=== PATIENT | male | born 1945 | race Caucasian/White ===

== ENCOUNTER 2018-05-24 18:02 | Inpatient (IN) | payer MEDICARE, OTHER, MEDICAID ==
[2018-05-24] MEDS: ALBUTEROL 0.5% (NEB) 2.5 MG/0.5 ML AMP INH (18:09)
[2018-05-24] MEDS: IPRATROPIUM (NEB) 0.5 MG/2.5 ML AMP INH (18:10)
[2018-05-24] MEDS: METHYLPREDNISOLONE 125 MG INJ IV (18:13)
[2018-05-24] MEDS: SOD CHLORIDE 0.9% 1,000 ML IV (18:14)
[2018-05-24 18:31] LABS: ADD MAN DIFF? NO; BASOPHIL # 0.1 10^3/ul (0.0-0.1); BASOPHILS % 0.5 % (0.0-2.0); EOSINOPHILS # 0.4 10^3/ul (0.0-0.5); EOSINOPHILS % 3.6 % (0.0-7.0); HEMATOCRIT 45.7 % (42.0-52.0); HEMOGLOBIN 15.1 g/dl (14.0-18.0); LYMPHOCYTES # 3.4 10^3/ul (0.8-2.9); LYMPHOCYTES % 32.9 % (15.0-51.0); MEAN CORPUSCULAR HEMOGLOBIN 31.3 pg (29.0-33.0); MEAN CORPUSCULAR VOLUME 94.6 fl (82.0-101.0); MEAN PLATELET VOLUME 9.3 fl (7.4-10.4); MONOCYTE # 1.1 10^3/ul (0.3-0.9); MONOCYTES % 10.2 % (0.0-11.0); NEUTROPHIL # 5.4 10^3/ul (1.6-7.5); NEUTROPHILS % 52.1 % (39.0-77.0); PLATELET COUNT 312 10^3/UL (140-415); RED BLOOD COUNT 4.83 10^6/ul (4.70-6.10); RED CELL DISTRIBUTION WIDTH 13.7 % (11.5-14.5)
[2018-05-24 18:31] LABS: WHITE BLOOD COUNT 10.4 10^3/ul (4.8-10.8)
[2018-05-24 18:50] LABS: ALANINE AMINOTRANSFERASE 28 IU/L (13-69); ALBUMIN 3.5 g/dl (3.3-4.9); ALBUMIN/GLOBULIN RATIO 1.09; ALKALINE PHOSPHATASE 58 IU/L (42-121); ANION GAP 11 (8-16); ASPARTATE AMINO TRANSFERASE 20 IU/L (15-46); BLOOD UREA NITROGEN 28 mg/dl (7-20); CALCIUM 9.2 mg/dl (8.4-10.2); CARBON DIOXIDE 34 mmol/L (21-31); CHLORIDE 106 mmol/L (97-110); CREATININE 0.88 mg/dl (0.61-1.24); GLUCOSE 96 mg/dl (70-220); LIPASE 36 U/L (23-300); POTASSIUM 4.4 mmol/L (3.5-5.1); SODIUM 147 mmol/L (135-144); TOTAL PROTEIN 6.7 g/dl (6.1-8.1)
[2018-05-24 19:01] LABS: TROPONIN-I < 0.012 ng/ml (0.000-0.120)
[2018-05-24] MEDS ORDERED: LORAZEPAM 2 MG INJ (19:03)
[2018-05-24] MEDS: LORAZEPAM 2 MG INJ IV (19:15)
[2018-05-24] MEDS ORDERED: hydrALAzine 20 MG INJ IV (19:30)
[2018-05-24] MEDS ORDERED: NITROGLYCERIN (SL) 0.4 MG TAB SL (19:30)
[2018-05-24] MEDS ORDERED: NACL 0.9% 3 ML SYG IV (19:30)
[2018-05-24] MEDS ORDERED: NA PHOSPHATE/BIPHOS 133 ML ENEMA PR (19:30)
[2018-05-24] MEDS ORDERED: HYDROCODONE/APAP (5/325) TAB PO (19:30)
[2018-05-24 19:56] LABS: INR 0.91; PROTIME 12.3 Sec (11.9-14.9)
[2018-05-24 19:57] LABS: PARTIAL THROMBOPLASTIN TIME 26.4 Sec (25.0-35.0)
[2018-05-24 19:58] LABS: CREATINE KINASE 27 IU/L (23-200)
[2018-05-24 20:11] LABS: FREE T4 (FREE THYROXINE) 1.47 ng/dl (0.78-2.44)
[2018-05-24] MEDS: ALBUTEROL/IPRATROPIUM (NEB) 3 ML AMP HHN (20:49)
[2018-05-25] MEDS: METHYLPREDNISOLONE 125 MG INJ IV ×4 (00:52→20:51)
[2018-05-25] MEDS: CHLORDIAZEPOXIDE 25 MG CAP PO ×4 (00:52→20:58)
[2018-05-25] MEDS: HEPARIN 5,000 UNIT/0.5 ML VIAL SC (01:08)
[2018-05-25] MEDS: ALBUTEROL/IPRATROPIUM (NEB) 3 ML AMP HHN ×6 (01:10→20:58)
[2018-05-25] MEDS: ACCU-CHEK XX (01:44)
[2018-05-25] MEDS ORDERED: GLUCAGON 1 MG INJ IM (02:00)
[2018-05-25] MEDS ORDERED: GLUCOSE GEL 15 GRAM TUBE BUCCAL (02:00)
[2018-05-25] MEDS ORDERED: DEXTROSE 50% 50 ML SYRINGE IV ×2 (02:00)
[2018-05-25] MEDS ORDERED: GLUCOSE GEL 15 GRAM TUBE PO ×2 (02:00)
[2018-05-25] MEDS: PANTOPRAZOLE 40 MG INJ IV (05:50)
[2018-05-25 06:17] LABS: ADD MAN DIFF? NO
[2018-05-25 06:32] LABS: WHITE BLOOD COUNT 7.8 10^3/ul (4.8-10.8)
[2018-05-25 06:32] LABS: BASOPHILS % 0.1 % (0.0-2.0); HEMATOCRIT 41.4 % (42.0-52.0); HEMOGLOBIN 13.5 g/dl (14.0-18.0); LYMPHOCYTES # 0.7 10^3/ul (0.8-2.9); LYMPHOCYTES % 9.5 % (15.0-51.0); MEAN CORPUSCULAR HGB CONC 32.6 g/dl (32.0-37.0); MEAN CORPUSCULAR VOLUME 95.2 fl (82.0-101.0); MEAN PLATELET VOLUME 10.9 fl (7.4-10.4); MONOCYTE # 0.1 10^3/ul (0.3-0.9); MONOCYTES % 1.3 % (0.0-11.0); NEUTROPHIL # 6.9 10^3/ul (1.6-7.5); NEUTROPHILS % 88.7 % (39.0-77.0); PLATELET COUNT 266 10^3/UL (140-415); POSITIVE DIFF @See below; RED BLOOD COUNT 4.35 10^6/ul (4.70-6.10); RED CELL DISTRIBUTION WIDTH 13.8 % (11.5-14.5)
[2018-05-25 07:09] LABS: CHOLESTEROL 113 mg/dl (100-200)
[2018-05-25 07:09] LABS: CHOL/HDL RATIO 2.3 RATIO; HDL CHOLESTEROL 48 mg/dl (31-75); LDL CHOLESTEROL,CALCULATED 56 mg/dl; TRIGLYCERIDES 43 mg/dl (0-149)
[2018-05-25 07:17] LABS: ANION GAP 14 (8-16); BLOOD UREA NITROGEN 28 mg/dl (7-20); CALCIUM 9.3 mg/dl (8.4-10.2); CARBON DIOXIDE 27 mmol/L (21-31); CHLORIDE 107 mmol/L (97-110); CREATININE 0.66 mg/dl (0.61-1.24); GLUCOSE 153 mg/dl (70-220); MAGNESIUM 2.1 mg/dl (1.7-2.5); PHOSPHORUS 3.5 mg/dl (2.5-4.9); POTASSIUM 4.4 mmol/L (3.5-5.1); SODIUM 144 mmol/L (135-144)
[2018-05-25 07:19] LABS: CREATINE KINASE < 20 IU/L (23-200)
[2018-05-25 07:22] LABS: CK-MB 0.33 ng/ml (0.0-2.4); TROPONIN-I < 0.012 ng/ml (0.000-0.120)
[2018-05-25 07:30] LABS: HEMOGLOBIN A1C 5.6 % (0-5.9)
[2018-05-25 07:38] LABS: THYROID STIMULATING HORMONE 0.832 MIU/L (0.465-4.680)
[2018-05-25] MEDS: LORAZEPAM 2 MG INJ IV ×5 (08:08→23:30)
[2018-05-25] MEDS: INSULIN ASPART [NOVOLOG] 3 ML PEN SC ×4 (08:09→20:57)
[2018-05-25] MEDS: MULTIVITAMINS 10 ML, THIAMINE 100 MG, FOLIC ACID 1 MG in SOD CHLORIDE 0.9% 1,000 ML IVPB (08:19)
[2018-05-25] MEDS ORDERED: MULTIVITAMINS 10 ML, THIAMINE 100 MG, FOLIC ACID 1 MG in SOD CHLORIDE 0.9% 1,000 ML IVPB (09:00)
[2018-05-25] MEDS: LEVOFLOXACIN 750MG/D5W (PMX) 150 ML IVPB (09:25)
[2018-05-25] MEDS: LEVOTHYROXINE 75 MCG TAB PO (10:48)
[2018-05-25] MEDS: FLUOXETINE 20 MG CAP PO (10:48)
[2018-05-25] MEDS: ARIPIPRAZOLE 5 MG TAB PO (10:48)
[2018-05-25] MEDS: QUETIAPINE 100 MG TAB PO (10:48)
[2018-05-26] MEDS: LORAZEPAM 2 MG INJ IV ×5 (00:37→21:14)
[2018-05-26] MEDS: ALBUTEROL/IPRATROPIUM (NEB) 3 ML AMP HHN ×6 (01:00→20:26)
[2018-05-26] MEDS: ACCU-CHEK XX (02:00)
[2018-05-26 05:16] LABS: ADD MAN DIFF? NO
[2018-05-26 05:29] LABS: BASOPHILS % 0.2 % (0.0-2.0); LYMPHOCYTES # 1.2 10^3/ul (0.8-2.9); LYMPHOCYTES % 6.1 % (15.0-51.0); MEAN CORPUSCULAR HEMOGLOBIN 31.4 pg (29.0-33.0); MEAN CORPUSCULAR HGB CONC 33.3 g/dl (32.0-37.0); MEAN CORPUSCULAR VOLUME 94.1 fl (82.0-101.0); MEAN PLATELET VOLUME 10.6 fl (7.4-10.4); MONOCYTE # 0.9 10^3/ul (0.3-0.9); MONOCYTES % 4.9 % (0.0-11.0); NEUTROPHIL # 16.8 10^3/ul (1.6-7.5); NEUTROPHILS % 88.1 % (39.0-77.0); PLATELET COUNT 295 10^3/UL (140-415); RED BLOOD COUNT 4.78 10^6/ul (4.70-6.10); RED CELL DISTRIBUTION WIDTH 13.6 % (11.5-14.5)
[2018-05-26 05:29] LABS: WHITE BLOOD COUNT 19.1 10^3/ul (4.8-10.8)
[2018-05-26] MEDS: PANTOPRAZOLE 40 MG INJ IV (05:37)
[2018-05-26] MEDS: LEVOFLOXACIN 750MG/D5W (PMX) 150 ML IVPB (05:38)
[2018-05-26] MEDS: METHYLPREDNISOLONE 125 MG INJ IV ×2 (05:38→13:35)
[2018-05-26] MEDS: LEVOTHYROXINE 75 MCG TAB PO (05:46)
[2018-05-26 07:29] LABS: ANION GAP 11 (8-16); BLOOD UREA NITROGEN 21 mg/dl (7-20); CARBON DIOXIDE 28 mmol/L (21-31); CHLORIDE 107 mmol/L (97-110); CREATININE 0.59 mg/dl (0.61-1.24); GLUCOSE 137 mg/dl (70-220); POTASSIUM 4.1 mmol/L (3.5-5.1); SODIUM 142 mmol/L (135-144)
[2018-05-26 07:30] LABS: MAGNESIUM 2.2 mg/dl (1.7-2.5)
[2018-05-26 07:30] LABS: PHOSPHORUS 3.1 mg/dl (2.5-4.9)
[2018-05-26] MEDS: INSULIN ASPART [NOVOLOG] 3 ML PEN SC ×4 (07:35→20:56)
[2018-05-26] MEDS: CHLORDIAZEPOXIDE 25 MG CAP PO ×3 (08:33→21:00)
[2018-05-26] MEDS: FLUOXETINE 20 MG CAP PO (08:33)
[2018-05-26] MEDS: ARIPIPRAZOLE 5 MG TAB PO (08:33)
[2018-05-26] MEDS: QUETIAPINE 100 MG TAB PO (08:34)
[2018-05-26] MEDS: MULTIVITAMINS 10 ML, THIAMINE 100 MG, FOLIC ACID 1 MG in SOD CHLORIDE 0.9% 1,000 ML IVPB (08:56)
[2018-05-26] MEDS: ONDANSETRON 4 MG INJ IV (13:34)
[2018-05-26] MEDS: THIAMINE 500 MG in SOD CHLORIDE 0.9% 250 ML IV (17:24)
[2018-05-26] MEDS ORDERED: THIAMINE 200 MG INJ IVPB (21:00)
[2018-05-27] MEDS: METHYLPREDNISOLONE 125 MG INJ IV ×4 (00:01→21:19)
[2018-05-27 00:36] LABS: AADO2 Arterial 315.5 mmHg (7.0-24.0); Allen Test ACCEPTAB; Arterial Base Excess 0.7 mmol/L (-3.0-3); Arterial Blood Gas Oxygen Sat 90.8 mmHG (95.0-100.0); Arterial COHb 0.6 % (0.0-3.0); Arterial HCO3 26.1 mmol/L (22.0-26.0); Arterial MetHb 0.3 % (0.0-1.5); Arterial Total Hemglobin 14.5 g/dl (12.0-18.0); MODE MASK - SIMPLE; Site Right Radial
[2018-05-27] MEDS: ALBUTEROL/IPRATROPIUM (NEB) 3 ML AMP HHN ×6 (01:10→21:00)
[2018-05-27] MEDS: ACCU-CHEK XX (02:00)
[2018-05-27] MEDS: LORAZEPAM 2 MG INJ IV ×3 (04:49→20:49)
[2018-05-27] MEDS: PANTOPRAZOLE 40 MG INJ IV (05:43)
[2018-05-27] MEDS: LEVOFLOXACIN 750MG/D5W (PMX) 150 ML IVPB (05:43)
[2018-05-27] MEDS: LEVOTHYROXINE 75 MCG TAB PO (05:45)
[2018-05-27] MEDS: INSULIN ASPART [NOVOLOG] 3 ML PEN SC ×4 (07:55→20:50)
[2018-05-27] MEDS: FLUOXETINE 20 MG CAP PO (08:40)
[2018-05-27] MEDS: ARIPIPRAZOLE 5 MG TAB PO (08:40)
[2018-05-27] MEDS: CHLORDIAZEPOXIDE 25 MG CAP PO ×3 (08:40→20:50)
[2018-05-27] MEDS: QUETIAPINE 100 MG TAB PO (08:41)
[2018-05-27] MEDS: MULTIVITAMINS 10 ML, THIAMINE 100 MG, FOLIC ACID 1 MG in SOD CHLORIDE 0.9% 1,000 ML IVPB (08:50)
[2018-05-27] MEDS: THIAMINE 500 MG in SOD CHLORIDE 0.9% 250 ML IV ×3 (10:19→20:49)
[2018-05-27] MEDS: morphine 2 MG INJ IV (16:42)
[2018-05-27 17:37] LABS: ADD MAN DIFF? NO
[2018-05-27 17:38] LABS: ABNORMAL IP MESSAGE 1; BASOPHILS % 0.1 % (0.0-2.0); EOSINOPHILS % 0.1 % (0.0-7.0); HEMATOCRIT 44.4 % (42.0-52.0); HEMOGLOBIN 14.6 g/dl (14.0-18.0); LYMPHOCYTES # 0.5 10^3/ul (0.8-2.9); LYMPHOCYTES % 3.7 % (15.0-51.0); MEAN CORPUSCULAR HEMOGLOBIN 31.4 pg (29.0-33.0); MEAN CORPUSCULAR HGB CONC 32.9 g/dl (32.0-37.0); MEAN CORPUSCULAR VOLUME 95.5 fl (82.0-101.0); MEAN PLATELET VOLUME 9.8 fl (7.4-10.4); MONOCYTE # 0.6 10^3/ul (0.3-0.9); MONOCYTES % 4.3 % (0.0-11.0); NEUTROPHIL # 13.2 10^3/ul (1.6-7.5); NEUTROPHILS % 90.6 % (39.0-77.0); PLATELET COUNT 304 10^3/UL (140-415); POSITIVE DIFF @See below; RED BLOOD COUNT 4.65 10^6/ul (4.70-6.10); RED CELL DISTRIBUTION WIDTH 13.7 % (11.5-14.5)
[2018-05-27 17:38] LABS: WHITE BLOOD COUNT 14.6 10^3/ul (4.8-10.8)
[2018-05-27 17:59] LABS: ANION GAP 6 (8-16); BLOOD UREA NITROGEN 23 mg/dl (7-20); CALCIUM 8.9 mg/dl (8.4-10.2); CARBON DIOXIDE 30 mmol/L (21-31); CHLORIDE 104 mmol/L (97-110); CREATININE 0.63 mg/dl (0.61-1.24); GLUCOSE 122 mg/dl (70-220); POTASSIUM 3.9 mmol/L (3.5-5.1); SODIUM 136 mmol/L (135-144)
[2018-05-28] MEDS: ALBUTEROL/IPRATROPIUM (NEB) 3 ML AMP HHN ×6 (01:22→20:22)
[2018-05-28] MEDS: ACCU-CHEK XX (02:00)
[2018-05-28] MEDS: LORAZEPAM 2 MG INJ IV ×2 (03:21→11:35)
[2018-05-28] MEDS: METHYLPREDNISOLONE 125 MG INJ IV ×3 (05:14→21:18)
[2018-05-28] MEDS: LEVOFLOXACIN 750MG/D5W (PMX) 150 ML IVPB (05:14)
[2018-05-28] MEDS: PANTOPRAZOLE 40 MG INJ IV (05:14)
[2018-05-28] MEDS: LEVOTHYROXINE 75 MCG TAB PO (05:18)
[2018-05-28 06:48] LABS: ADD MAN DIFF? NO
[2018-05-28 06:59] LABS: BASOPHILS % 0.1 % (0.0-2.0); HEMATOCRIT 42.8 % (42.0-52.0); LYMPHOCYTES % 8.3 % (15.0-51.0); MEAN CORPUSCULAR HEMOGLOBIN 30.9 pg (29.0-33.0); MEAN CORPUSCULAR HGB CONC 32.7 g/dl (32.0-37.0); MEAN CORPUSCULAR VOLUME 94.5 fl (82.0-101.0); MEAN PLATELET VOLUME 9.6 fl (7.4-10.4); MONOCYTE # 1.1 10^3/ul (0.3-0.9); MONOCYTES % 8.9 % (0.0-11.0); NEUTROPHIL # 10.1 10^3/ul (1.6-7.5); PLATELET COUNT 268 10^3/UL (140-415); RED BLOOD COUNT 4.53 10^6/ul (4.70-6.10); RED CELL DISTRIBUTION WIDTH 13.7 % (11.5-14.5)
[2018-05-28 06:59] LABS: WHITE BLOOD COUNT 12.3 10^3/ul (4.8-10.8)
[2018-05-28 07:45] LABS: ANION GAP 8 (8-16); BLOOD UREA NITROGEN 20 mg/dl (7-20); CALCIUM 9.2 mg/dl (8.4-10.2); CARBON DIOXIDE 31 mmol/L (21-31); CHLORIDE 100 mmol/L (97-110); CREATININE 0.64 mg/dl (0.61-1.24); GLUCOSE 122 mg/dl (70-220); POTASSIUM 4.2 mmol/L (3.5-5.1); SODIUM 135 mmol/L (135-144)
[2018-05-28] MEDS: INSULIN ASPART [NOVOLOG] 3 ML PEN SC ×4 (07:55→21:00)
[2018-05-28] MEDS: ARIPIPRAZOLE 5 MG TAB PO (08:41)
[2018-05-28] MEDS: QUETIAPINE 100 MG TAB PO (08:41)
[2018-05-28] MEDS: THIAMINE 500 MG in SOD CHLORIDE 0.9% 250 ML IV ×3 (08:42→21:18)
[2018-05-28] MEDS: FLUOXETINE 20 MG CAP PO (08:50)
[2018-05-28] MEDS: MULTIVITAMINS 10 ML, THIAMINE 100 MG, FOLIC ACID 1 MG in SOD CHLORIDE 0.9% 1,000 ML IVPB (08:50)
[2018-05-28] MEDS: CHLORDIAZEPOXIDE 25 MG CAP PO ×3 (08:50→21:00)
[2018-05-29] MEDS: ALBUTEROL/IPRATROPIUM (NEB) 3 ML AMP HHN ×6 (00:50→20:43)
[2018-05-29] MEDS: ACCU-CHEK XX ×2 (02:00→21:11)
[2018-05-29] MEDS: LEVOFLOXACIN 750MG/D5W (PMX) 150 ML IVPB (05:37)
[2018-05-29] MEDS: METHYLPREDNISOLONE 125 MG INJ IV (05:37)
[2018-05-29] MEDS: PANTOPRAZOLE 40 MG INJ IV (05:37)
[2018-05-29] MEDS: LEVOTHYROXINE 75 MCG TAB PO (06:00)
[2018-05-29 06:34] LABS: ADD MAN DIFF? NO
[2018-05-29 06:42] LABS: WHITE BLOOD COUNT 9.4 10^3/ul (4.8-10.8)
[2018-05-29 06:42] LABS: BASOPHILS % 0.1 % (0.0-2.0); HEMOGLOBIN 14.3 g/dl (14.0-18.0); LYMPHOCYTES # 0.8 10^3/ul (0.8-2.9); LYMPHOCYTES % 8.5 % (15.0-51.0); MEAN CORPUSCULAR HEMOGLOBIN 31.2 pg (29.0-33.0); MEAN CORPUSCULAR HGB CONC 33.3 g/dl (32.0-37.0); MEAN CORPUSCULAR VOLUME 93.7 fl (82.0-101.0); MEAN PLATELET VOLUME 9.9 fl (7.4-10.4); MONOCYTE # 0.7 10^3/ul (0.3-0.9); MONOCYTES % 7.6 % (0.0-11.0); NEUTROPHIL # 7.7 10^3/ul (1.6-7.5); NEUTROPHILS % 81.7 % (39.0-77.0); PLATELET COUNT 258 10^3/UL (140-415); RED BLOOD COUNT 4.59 10^6/ul (4.70-6.10); RED CELL DISTRIBUTION WIDTH 13.6 % (11.5-14.5)
[2018-05-29 07:11] LABS: ANION GAP 9 (8-16); BLOOD UREA NITROGEN 23 mg/dl (7-20); CALCIUM 8.7 mg/dl (8.4-10.2); CARBON DIOXIDE 30 mmol/L (21-31); CHLORIDE 103 mmol/L (97-110); CREATININE 0.63 mg/dl (0.61-1.24); GLUCOSE 122 mg/dl (70-220); POTASSIUM 4.1 mmol/L (3.5-5.1); SODIUM 138 mmol/L (135-144)
[2018-05-29] MEDS: INSULIN ASPART [NOVOLOG] 3 ML PEN SC ×4 (07:55→21:00)
[2018-05-29] MEDS: ARIPIPRAZOLE 5 MG TAB PO (08:16)
[2018-05-29] MEDS: THIAMINE 500 MG in SOD CHLORIDE 0.9% 250 ML IV ×2 (08:16→12:46)
[2018-05-29] MEDS: QUETIAPINE 100 MG TAB PO (08:16)
[2018-05-29] MEDS: FLUOXETINE 20 MG CAP PO (08:16)
[2018-05-29] MEDS: CHLORDIAZEPOXIDE 25 MG CAP PO (08:18)
[2018-05-29] MEDS: LORAZEPAM 2 MG INJ IV ×3 (12:42→23:57)
[2018-05-29] MEDS ORDERED: PENDING SANTYL ORDER FOR WOUND CARE XX (14:30)
[2018-05-29] MEDS: METHYLPREDNISOLONE 40 MG INJ IV (21:01)
[2018-05-30] MEDS: ALBUTEROL/IPRATROPIUM (NEB) 3 ML AMP HHN ×6 (01:00→21:26)
[2018-05-30] MEDS: LEVOFLOXACIN 750MG/D5W (PMX) 150 ML IVPB (05:22)
[2018-05-30] MEDS: LEVOTHYROXINE 75 MCG TAB PO (05:22)
[2018-05-30] MEDS: morphine LIQ (10 MG/5 ML) CUP PO (05:42)
[2018-05-30] MEDS: PANTOPRAZOLE 40 MG INJ IV (06:06)
[2018-05-30 06:10] LABS: ADD MAN DIFF? NO
[2018-05-30 06:22] LABS: BASOPHILS % 0.2 % (0.0-2.0); EOSINOPHILS # 0.2 10^3/ul (0.0-0.5); EOSINOPHILS % 1.6 % (0.0-7.0); HEMATOCRIT 44.1 % (42.0-52.0); HEMOGLOBIN 14.5 g/dl (14.0-18.0); LYMPHOCYTES # 3.2 10^3/ul (0.8-2.9); LYMPHOCYTES % 25.3 % (15.0-51.0); MEAN CORPUSCULAR HEMOGLOBIN 31.5 pg (29.0-33.0); MEAN CORPUSCULAR HGB CONC 32.9 g/dl (32.0-37.0); MEAN CORPUSCULAR VOLUME 95.7 fl (82.0-101.0); MEAN PLATELET VOLUME 9.7 fl (7.4-10.4); MONOCYTE # 1.3 10^3/ul (0.3-0.9); MONOCYTES % 10.7 % (0.0-11.0); NEUTROPHIL # 7.7 10^3/ul (1.6-7.5); NEUTROPHILS % 61.6 % (39.0-77.0); PLATELET COUNT 238 10^3/UL (140-415); RED BLOOD COUNT 4.61 10^6/ul (4.70-6.10); RED CELL DISTRIBUTION WIDTH 13.7 % (11.5-14.5)
[2018-05-30 06:22] LABS: WHITE BLOOD COUNT 12.4 10^3/ul (4.8-10.8)
[2018-05-30 07:05] LABS: ANION GAP 7 (8-16); BLOOD UREA NITROGEN 26 mg/dl (7-20); CALCIUM 8.6 mg/dl (8.4-10.2); CARBON DIOXIDE 33 mmol/L (21-31); CHLORIDE 102 mmol/L (97-110); CREATININE 0.76 mg/dl (0.61-1.24); GLUCOSE 69 mg/dl (70-220); POTASSIUM 3.8 mmol/L (3.5-5.1); SODIUM 138 mmol/L (135-144)
[2018-05-30] MEDS: INSULIN ASPART [NOVOLOG] 3 ML PEN SC ×4 (07:55→21:00)
[2018-05-30] MEDS: METHYLPREDNISOLONE 40 MG INJ IV ×2 (08:30→20:10)
[2018-05-30] MEDS: FLUOXETINE 20 MG CAP PO (08:31)
[2018-05-30] MEDS: QUETIAPINE 100 MG TAB PO (08:31)
[2018-05-30] MEDS: ARIPIPRAZOLE 5 MG TAB PO (08:31)
[2018-05-30] MEDS: DEXTROSE 5%-0.9% NACL 1,000 ML IV (22:50)
[2018-05-31] MEDS: ALBUTEROL/IPRATROPIUM (NEB) 3 ML AMP HHN ×6 (01:33→20:04)
[2018-05-31] MEDS: ACCU-CHEK XX (02:00)
[2018-05-31] MEDS: PANTOPRAZOLE 40 MG INJ IV (05:30)
[2018-05-31] MEDS: DOCUSATE SODIUM 100 MG CAP PO (05:31)
[2018-05-31] MEDS: LEVOTHYROXINE 75 MCG TAB PO (05:31)
[2018-05-31] MEDS: LEVOFLOXACIN 750MG/D5W (PMX) 150 ML IVPB (05:31)
[2018-05-31] MEDS: INSULIN ASPART [NOVOLOG] 3 ML PEN SC ×4 (07:55→20:52)
[2018-05-31] MEDS: FLUOXETINE 20 MG CAP PO (09:00)
[2018-05-31] MEDS: ARIPIPRAZOLE 5 MG TAB PO (09:00)
[2018-05-31] MEDS ORDERED: SOD CHLORIDE 0.9% 250 ML IV (09:00)
[2018-05-31] MEDS: METHYLPREDNISOLONE 40 MG INJ IV ×2 (09:13→20:43)
[2018-05-31] MEDS: HALOPERIDOL 5 MG INJ IV (09:32)
[2018-05-31 12:05] LABS: ADD MAN DIFF? NO
[2018-05-31 12:10] LABS: WHITE BLOOD COUNT 15.2 10^3/ul (4.8-10.8)
[2018-05-31 12:10] LABS: BASOPHILS % 0.1 % (0.0-2.0); EOSINOPHILS # 0.2 10^3/ul (0.0-0.5); HEMATOCRIT 46.8 % (42.0-52.0); HEMOGLOBIN 15.7 g/dl (14.0-18.0); LYMPHOCYTES # 2.9 10^3/ul (0.8-2.9); MEAN CORPUSCULAR HEMOGLOBIN 31.3 pg (29.0-33.0); MEAN CORPUSCULAR HGB CONC 33.5 g/dl (32.0-37.0); MEAN CORPUSCULAR VOLUME 93.2 fl (82.0-101.0); MEAN PLATELET VOLUME 9.5 fl (7.4-10.4); MONOCYTE # 1.4 10^3/ul (0.3-0.9); MONOCYTES % 9.5 % (0.0-11.0); NEUTROPHIL # 10.7 10^3/ul (1.6-7.5); NEUTROPHILS % 70.1 % (39.0-77.0); PLATELET COUNT 254 10^3/UL (140-415); RED BLOOD COUNT 5.02 10^6/ul (4.70-6.10); RED CELL DISTRIBUTION WIDTH 13.5 % (11.5-14.5)
[2018-05-31 12:26] LABS: ANION GAP 7 (8-16); BLOOD UREA NITROGEN 26 mg/dl (7-20); CALCIUM 9.3 mg/dl (8.4-10.2); CARBON DIOXIDE 35 mmol/L (21-31); CHLORIDE 98 mmol/L (97-110); CREATININE 0.83 mg/dl (0.61-1.24); GLUCOSE 82 mg/dl (70-220); POTASSIUM 3.5 mmol/L (3.5-5.1); SODIUM 136 mmol/L (135-144)
[2018-05-31] MEDS: MAGNESIUM HYDROXIDE 30ML CUP PO (19:30)
[2018-05-31] MEDS: QUETIAPINE 100 MG TAB PO (20:44)
[2018-05-31] MEDS ORDERED: COLLAGENASE 5 GM (UD JAR) TOP (21:00)
[2018-05-31] MEDS: COLLAGENASE 5 GM (UD JAR) TOP (21:16)
[2018-06-01] MEDS: ALBUTEROL/IPRATROPIUM (NEB) 3 ML AMP HHN ×6 (01:24→22:01)
[2018-06-01] MEDS: SOD CHLORIDE 0.9% 1,000 ML IV (01:50)
[2018-06-01] MEDS: ACCU-CHEK XX (01:51)
[2018-06-01] MEDS: LEVOFLOXACIN 750MG/D5W (PMX) 150 ML IVPB (05:22)
[2018-06-01] MEDS: LEVOTHYROXINE 75 MCG TAB PO (05:22)
[2018-06-01] MEDS: DOCUSATE SODIUM 100 MG CAP PO (05:22)
[2018-06-01] MEDS: PANTOPRAZOLE 40 MG INJ IV (05:22)
[2018-06-01 06:42] LABS: ADD MAN DIFF? NO
[2018-06-01 06:46] LABS: BASOPHILS % 0.1 % (0.0-2.0); EOSINOPHILS % 0.1 % (0.0-7.0); HEMATOCRIT 44.9 % (42.0-52.0); HEMOGLOBIN 15.2 g/dl (14.0-18.0); LYMPHOCYTES % 9.9 % (15.0-51.0); MEAN CORPUSCULAR HEMOGLOBIN 31.3 pg (29.0-33.0); MEAN CORPUSCULAR HGB CONC 33.9 g/dl (32.0-37.0); MEAN CORPUSCULAR VOLUME 92.6 fl (82.0-101.0); MEAN PLATELET VOLUME 10.2 fl (7.4-10.4); MONOCYTE # 0.5 10^3/ul (0.3-0.9); MONOCYTES % 4.6 % (0.0-11.0); NEUTROPHIL # 8.3 10^3/ul (1.6-7.5); NEUTROPHILS % 84.9 % (39.0-77.0); PLATELET COUNT 216 10^3/UL (140-415); RED BLOOD COUNT 4.85 10^6/ul (4.70-6.10); RED CELL DISTRIBUTION WIDTH 13.7 % (11.5-14.5)
[2018-06-01 06:46] LABS: WHITE BLOOD COUNT 9.8 10^3/ul (4.8-10.8)
[2018-06-01 07:12] LABS: ANION GAP 8 (8-16); BLOOD UREA NITROGEN 27 mg/dl (7-20); CALCIUM 8.8 mg/dl (8.4-10.2); CARBON DIOXIDE 32 mmol/L (21-31); CHLORIDE 102 mmol/L (97-110); CREATININE 0.74 mg/dl (0.61-1.24); GLUCOSE 122 mg/dl (70-220); POTASSIUM 4.2 mmol/L (3.5-5.1); SODIUM 138 mmol/L (135-144)
[2018-06-01] MEDS: HALOPERIDOL 5 MG INJ IV (07:47)
[2018-06-01] MEDS: INSULIN ASPART [NOVOLOG] 3 ML PEN SC ×4 (07:55→21:00)
[2018-06-01] MEDS: COLLAGENASE 5 GM (UD JAR) TOP (09:00)
[2018-06-01] MEDS: METHYLPREDNISOLONE 40 MG INJ IV ×2 (09:00→21:20)
[2018-06-01] MEDS: ARIPIPRAZOLE 5 MG TAB PO (09:00)
[2018-06-01] MEDS: FLUOXETINE 20 MG CAP PO (09:00)
[2018-06-01] MEDS: NICOTINE (14 MG/24 HR) PATCH TRANSDERM (12:00)
[2018-06-01] MEDS: ACETAMINOPHEN 325 MG TAB PO (21:20)
[2018-06-01] MEDS: QUETIAPINE 100 MG TAB PO (21:20)
[2018-06-02] MEDS: ALBUTEROL/IPRATROPIUM (NEB) 3 ML AMP HHN ×6 (01:58→20:56)
[2018-06-02] MEDS: ACCU-CHEK XX (02:00)
[2018-06-02] MEDS: PANTOPRAZOLE 40 MG INJ IV ×2 (06:00→06:42)
[2018-06-02] MEDS: LEVOTHYROXINE 75 MCG TAB PO ×2 (06:00→06:42)
[2018-06-02] MEDS: BISACODYL 10 MG SUPP PR (06:40)
[2018-06-02] MEDS: INSULIN ASPART [NOVOLOG] 3 ML PEN SC (07:55)
[2018-06-02] MEDS: ARIPIPRAZOLE 5 MG TAB PO (08:48)
[2018-06-02] MEDS: NICOTINE (14 MG/24 HR) PATCH TRANSDERM (08:48)
[2018-06-02] MEDS: COLLAGENASE 5 GM (UD JAR) TOP (08:48)
[2018-06-02] MEDS: FLUOXETINE 20 MG CAP PO (08:48)
[2018-06-02] MEDS: METHYLPREDNISOLONE 40 MG INJ IV ×2 (08:48→20:37)
[2018-06-02] MEDS: QUETIAPINE 100 MG TAB PO (20:37)
[2018-06-03] MEDS: ALBUTEROL/IPRATROPIUM (NEB) 3 ML AMP HHN ×6 (01:49→20:12)
[2018-06-03] MEDS: ACCU-CHEK XX (02:00)
[2018-06-03] MEDS: PANTOPRAZOLE 40 MG INJ IV (05:43)
[2018-06-03] MEDS: LEVOTHYROXINE 75 MCG TAB PO (05:43)
[2018-06-03] MEDS: ARIPIPRAZOLE 5 MG TAB PO (09:02)
[2018-06-03] MEDS: NICOTINE (14 MG/24 HR) PATCH TRANSDERM (09:02)
[2018-06-03] MEDS: FLUOXETINE 20 MG CAP PO (09:02)
[2018-06-03] MEDS: COLLAGENASE 5 GM (UD JAR) TOP (09:02)
[2018-06-03] MEDS: METHYLPREDNISOLONE 40 MG INJ IV (09:02)
[2018-06-03] MEDS: QUETIAPINE 100 MG TAB PO (21:04)
[2018-06-04] MEDS: ALBUTEROL/IPRATROPIUM (NEB) 3 ML AMP HHN ×6 (01:41→20:54)
[2018-06-04] MEDS: ACCU-CHEK XX (02:00)
[2018-06-04] MEDS: LEVOTHYROXINE 75 MCG TAB PO (06:27)
[2018-06-04] MEDS: PANTOPRAZOLE 40 MG INJ IV (06:27)
[2018-06-04] MEDS: ARIPIPRAZOLE 5 MG TAB PO (09:00)
[2018-06-04] MEDS: COLLAGENASE 5 GM (UD JAR) TOP (09:56)
[2018-06-04] MEDS: NICOTINE (14 MG/24 HR) PATCH TRANSDERM (09:56)
[2018-06-04] MEDS: FLUOXETINE 20 MG CAP PO (09:56)
[2018-06-04] MEDS: predniSONE 20 MG TAB PO (09:56)
[2018-06-04] MEDS: QUETIAPINE 100 MG TAB PO (20:38)
[2018-06-04] MEDS: DIVALPROEX (EC) 250 MG TAB PO (20:38)
[2018-06-05] MEDS: ALBUTEROL/IPRATROPIUM (NEB) 3 ML AMP HHN ×6 (01:00→20:02)
[2018-06-05] MEDS: ACCU-CHEK XX (01:41)
[2018-06-05] MEDS: PANTOPRAZOLE 40 MG INJ IV (06:24)
[2018-06-05] MEDS: LEVOTHYROXINE 75 MCG TAB PO (06:26)
[2018-06-05] MEDS: COLLAGENASE 5 GM (UD JAR) TOP (08:49)
[2018-06-05] MEDS: DIVALPROEX (EC) 250 MG TAB PO ×2 (08:49→19:47)
[2018-06-05] MEDS: predniSONE 20 MG TAB PO (08:50)
[2018-06-05] MEDS: NICOTINE (14 MG/24 HR) PATCH TRANSDERM (08:50)
[2018-06-05] MEDS: QUETIAPINE 100 MG TAB PO (19:47)
[2018-06-06] MEDS: ALBUTEROL/IPRATROPIUM (NEB) 3 ML AMP HHN ×6 (01:50→21:52)
[2018-06-06] MEDS: ACCU-CHEK XX (02:00)
[2018-06-06] MEDS: PANTOPRAZOLE (EC) 40 MG TAB PO (06:24)
[2018-06-06] MEDS: LEVOTHYROXINE 75 MCG TAB PO (06:24)
[2018-06-06] MEDS: COLLAGENASE 5 GM (UD JAR) TOP (08:55)
[2018-06-06] MEDS: NICOTINE (14 MG/24 HR) PATCH TRANSDERM (08:55)
[2018-06-06] MEDS: predniSONE 20 MG TAB PO (08:55)
[2018-06-06] MEDS: DIVALPROEX (EC) 250 MG TAB PO ×2 (08:55→20:17)
[2018-06-06] MEDS: QUETIAPINE 100 MG TAB PO (20:17)
[2018-06-07] MEDS: ALBUTEROL/IPRATROPIUM (NEB) 3 ML AMP HHN ×6 (01:13→21:16)
[2018-06-07] MEDS: ACCU-CHEK XX (02:00)
[2018-06-07] MEDS: PANTOPRAZOLE (EC) 40 MG TAB PO (05:28)
[2018-06-07] MEDS: LEVOTHYROXINE 75 MCG TAB PO (05:28)
[2018-06-07] MEDS: predniSONE 20 MG TAB PO (08:48)
[2018-06-07] MEDS: DIVALPROEX (EC) 250 MG TAB PO ×2 (08:48→20:12)
[2018-06-07] MEDS: NICOTINE (14 MG/24 HR) PATCH TRANSDERM (08:48)
[2018-06-07] MEDS: COLLAGENASE 5 GM (UD JAR) TOP (08:50)
[2018-06-07] MEDS: QUETIAPINE 100 MG TAB PO (20:12)
[2018-06-08] MEDS: ALBUTEROL/IPRATROPIUM (NEB) 3 ML AMP HHN ×7 (00:53→20:49)
[2018-06-08] MEDS: ACCU-CHEK XX (01:51)
[2018-06-08] MEDS: PANTOPRAZOLE (EC) 40 MG TAB PO (06:35)
[2018-06-08] MEDS: LEVOTHYROXINE 75 MCG TAB PO (06:35)
[2018-06-08] MEDS: predniSONE 20 MG TAB NGT (08:24)
[2018-06-08] MEDS: DIVALPROEX (EC) 250 MG TAB PO ×2 (08:25→20:30)
[2018-06-08] MEDS: COLLAGENASE 5 GM (UD JAR) TOP (08:25)
[2018-06-08] MEDS: NICOTINE (14 MG/24 HR) PATCH TRANSDERM (08:25)
[2018-06-08] MEDS: QUETIAPINE 100 MG TAB PO (20:30)
[2018-06-09] MEDS: ALBUTEROL/IPRATROPIUM (NEB) 3 ML AMP HHN ×6 (00:51→20:09)
[2018-06-09] MEDS: ACCU-CHEK XX (02:00)
[2018-06-09] MEDS: LEVOTHYROXINE 75 MCG TAB PO (06:09)
[2018-06-09] MEDS: PANTOPRAZOLE (EC) 40 MG TAB PO (06:09)
[2018-06-09] MEDS: COLLAGENASE 5 GM (UD JAR) TOP (08:41)
[2018-06-09] MEDS: NICOTINE (14 MG/24 HR) PATCH TRANSDERM (08:41)
[2018-06-09] MEDS: DIVALPROEX (EC) 250 MG TAB PO ×2 (08:41→20:34)
[2018-06-09] MEDS: predniSONE 20 MG TAB NGT (08:41)
[2018-06-09] MEDS: MAGNESIUM HYDROXIDE 30ML CUP PO (09:51)
[2018-06-09] MEDS: QUETIAPINE 100 MG TAB PO (20:34)
[2018-06-10] MEDS: ALBUTEROL/IPRATROPIUM (NEB) 3 ML AMP HHN ×6 (00:12→20:06)
[2018-06-10] MEDS: ACCU-CHEK XX (02:00)
[2018-06-10] MEDS: PANTOPRAZOLE (EC) 40 MG TAB PO (05:17)
[2018-06-10] MEDS: LEVOTHYROXINE 75 MCG TAB PO (05:17)
[2018-06-10] MEDS: COLLAGENASE 5 GM (UD JAR) TOP ×2 (08:09→09:00)
[2018-06-10] MEDS: NICOTINE (14 MG/24 HR) PATCH TRANSDERM (08:09)
[2018-06-10] MEDS: DIVALPROEX (EC) 250 MG TAB PO ×2 (08:09→21:02)
[2018-06-10] MEDS: predniSONE 20 MG TAB NGT (08:09)
[2018-06-10] MEDS: QUETIAPINE 100 MG TAB PO (21:02)
[2018-06-11] MEDS: ALBUTEROL/IPRATROPIUM (NEB) 3 ML AMP HHN ×6 (01:20→21:31)
[2018-06-11] MEDS: ACCU-CHEK XX (02:00)
[2018-06-11] MEDS: PANTOPRAZOLE (EC) 40 MG TAB PO (06:24)
[2018-06-11] MEDS: LEVOTHYROXINE 75 MCG TAB PO (06:24)
[2018-06-11] MEDS: NICOTINE (14 MG/24 HR) PATCH TRANSDERM (08:31)
[2018-06-11] MEDS: predniSONE 20 MG TAB NGT (08:31)
[2018-06-11] MEDS: DIVALPROEX (EC) 250 MG TAB PO ×2 (08:31→20:51)
[2018-06-11 13:33] LABS: AADO2 Arterial 34.6 mmHg (7.0-24.0); Allen Test ACCEPTAB; Arterial Base Excess 2.2 mmol/L (-3.0-3); Arterial Blood Gas Oxygen Sat 91.8 mmHG (95.0-100.0); Arterial COHb 0.3 % (0.0-3.0); Arterial Fraction of Oxyhgb 91.3 % (93.0-99.0); Arterial HCO3 27.1 mmol/L (22.0-26.0); Arterial MetHb 0.2 % (0.0-1.5); Arterial Total Hemglobin 14.8 g/dl (12.0-18.0); Arterial pCO2 43.3 mmhg (35-45); MODE ROOM AIR; Site Right Radial
[2018-06-11] MEDS: QUETIAPINE 100 MG TAB PO (20:51)
[2018-06-12] MEDS: ALBUTEROL/IPRATROPIUM (NEB) 3 ML AMP HHN ×6 (01:01→20:35)
[2018-06-12] MEDS: ACCU-CHEK XX (02:00)
[2018-06-12] MEDS: PANTOPRAZOLE (EC) 40 MG TAB PO (06:16)
[2018-06-12] MEDS: LEVOTHYROXINE 75 MCG TAB PO (06:16)
[2018-06-12] MEDS: DIVALPROEX (EC) 250 MG TAB PO ×2 (08:28→20:45)
[2018-06-12] MEDS: NICOTINE (14 MG/24 HR) PATCH TRANSDERM (08:28)
[2018-06-12] MEDS: QUETIAPINE 100 MG TAB PO (20:45)
[2018-06-13] MEDS: ALBUTEROL/IPRATROPIUM (NEB) 3 ML AMP HHN ×3 (00:13→10:26)
[2018-06-13] MEDS: ACCU-CHEK XX (02:00)
[2018-06-13] MEDS: LEVOTHYROXINE 75 MCG TAB PO (05:15)
[2018-06-13] MEDS: PANTOPRAZOLE (EC) 40 MG TAB PO (05:15)
[2018-06-13] MEDS: NICOTINE (14 MG/24 HR) PATCH TRANSDERM (09:57)
[2018-06-13] MEDS: DIVALPROEX (EC) 250 MG TAB PO (09:57)
== END 2018-06-13 12:35 | disposition home or self-care (01) | DRG 190 ==
LOC: ICU 19:31 → 5EC 06-04 22:43 → TEL 05-26 18:00 → E/R 18:02
DX: J44.1 Chronic obstructive pulmonary disease with (acute) exacerbation (principal); J96.01 Acute respiratory failure with hypoxia; G92 Toxic encephalopathy; E87.0 Hyperosmolality and hypernatremia; F10.239 Alcohol dependence with withdrawal, unspecified; F10.229 Alcohol dependence with intoxication, unspecified; E86.0 Dehydration; E03.9 Hypothyroidism, unspecified; F31.9 Bipolar disorder, unspecified; F17.210 Nicotine dependence, cigarettes, uncomplicated; J20.9 Acute bronchitis, unspecified; J44.0 Chronic obstructive pulmonary disease with (acute) lower respiratory infection; Y90.3 Blood alcohol level of 60-79 mg/100 ml; Z59.0 Homelessness
CPT/HCPCS: 36415; 36600; 71045; 80048; 80053; 80061; 80307; 82550; 82553; 82803; 82962; 83036; 83690; 83735; 84100; 84439; 84443; 84484; 85025; 85610; 85730; 87081; 92610; 93005; 94640; 94644; 94664; 96361; 96374; 96375; 97116; 97161; 97165; 97530; 97535; 99291-25